=== PATIENT | male | born 1980 | race Caucasian/White ===

== ENCOUNTER 2021-04-14 21:10 | Emergency (ER) | payer OTHER ==
[2021-04-14] MEDS ORDERED: DIPHTH,PERTUSS(ACELL),TET 0.5 ML DISP.SYRIN IM ONE ×2 (21:40→21:59)
[2021-04-14 21:42] VITALS: BP 142/74; PULSE 64; TEMP 98.6; BMI 25.8
== END 2021-04-14 22:36 | disposition home or self-care (01) ==
LOC: JER 21:10 → JERFT 21:10
PROC: 3E0234Z Introduction of Serum, Toxoid and Vaccine into Muscle, Percutaneous Approach (ICD-10-PCS; principal; 2021-04-14)
DX: S51.832A Puncture wound without foreign body of left forearm, initial encounter (principal); W45.0XXA Nail entering through skin, initial encounter
CPT/HCPCS: 90471; 90715; 99284-25

== ENCOUNTER 2022-10-14 21:04 | Emergency (ER) | payer OTHER ==
[2022-10-14 21:16] VITALS: BP 109/74; PULSE 70; RESP 20; TEMP 98.2; BMI 25.0
== END 2022-10-15 01:11 | disposition home or self-care (01) ==
LOC: JERFT 21:04
PROC: 0HQFXZZ Repair Right Hand Skin, External Approach (ICD-10-PCS; principal; 2022-10-14)
DX: S61.213A Laceration without foreign body of left middle finger without damage to nail, initial encounter (principal); X58.XXXA Exposure to other specified factors, initial encounter; Y99.0 Civilian activity done for income or pay
CPT/HCPCS: 99282-25

== ENCOUNTER 2022-10-24 21:13 | Emergency (ER) | payer OTHER ==
[2022-10-24 21:23] VITALS: BP 116/69; PULSE 60; RESP 18; TEMP 98.1; BMI 25.8
== END 2022-10-24 21:36 | disposition home or self-care (01) ==
LOC: JERFT 21:13 → JER 21:13 → JERFT 21:36
DX: Z48.02 Encounter for removal of sutures (principal)
CPT/HCPCS: 99281-25